=== PATIENT | male | born 1960 | race Caucasian/White ===

== ENCOUNTER 2018-10-13 03:55 | Emergency (ER) | payer BC, OTHER ==
[~2018-10-13] VITALS: Ht 177.8 cm; Wt 85.0 kg
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
[2018-10-13] MEDS ORDERED: CEPHALEXIN 500 MG CAPSULE ONE (04:58)
[2018-10-13] MEDS ORDERED: CEPHALEXIN 500 MG CAPSULE PO ONE (05:00)
[2018-10-13 05:01] LABS: BASOPHILS # (AUTO) 0.02 x10^3/uL (0-0.1); BASOPHILS % (AUTO) 0 % (0-1); EOSINOPHILS # (AUTO) 0.09 x10^3/uL (0-0.4); EOSINOPHILS % (AUTO) 1 % (1-7); LYMPHOCYTES # (AUTO) 2.12 x10^3/uL (1-3.4); LYMPHOCYTES % (AUTO) 31 % (22-44); MD NO; MEAN CORPUSCULAR HEMOGLOBIN 30.3 pg (27.5-34.5); MEAN CORPUSCULAR HGB CONC 33.5 g/dL (33.2-36.2); MEAN CORPUSCULAR VOLUME 90.5 fL (81-97); MEAN PLATELET VOLUME 8.4 fL (7.4-10.4); MONOCYTES # (AUTO) 0.64 x10^3/uL (0.2-0.8); MONOCYTES % (AUTO) 9 % (2-9); NEUTROPHILS # (AUTO) 3.98 x10^3/uL (1.8-6.8); NEUTROPHILS % (AUTO) 58 % (42-75); PLATELET COUNT 196 x10^3/uL (130-400); RED BLOOD COUNT 5.33 x10^6/uL (4.38-5.82); RED CELL DISTRIBUTION WIDTH 13.1 % (9.4-14.8)
[2018-10-13 05:13] LABS: ALBUMIN 4.2 g/dL (3.4-5.0); ANION GAP 5 mmol/L (5-15); CALCIUM 8.7 mg/dL (8.5-10.1); CHLORIDE 110 mmol/L (98-107)
[2018-10-13 05:16] LABS: ALANINE AMINOTRANSFERASE 36 U/L (12-78); ALKALINE PHOSPHATASE 59 U/L (45-117); BILIRUBIN,TOTAL 0.6 mg/dL (0.2-1.0); CREATININE 0.82 mg/dL (0.7-1.3); SALICYLATE LEVEL < 1.7 mg/dL (2.8-20.0)
--- NOTE | 2018-10-13 05:16 | NUR ---
PT MOVED FROM ROOM 15 TO ROOM 40. ASSUMING CARE OF PT AT THIS TIME.
[2018-10-13 05:17] LABS: ACETAMINOPHEN < 2 mcg/mL (10-30)
[2018-10-13 05:30] LABS: AMPHETAMINE SCREEN, URINE Negative (Negative); BARBITURATE SCREEN, URINE Negative (Negative); BENZODIAZEPINE SCREEN, URINE Negative (Negative); CANNABINOID SCREEN, URINE Negative (Negative); COCAINE SCREEN, URINE Negative (Negative); METHADONE SCREEN, URINE Negative (Negative); OPIATE SCREEN, URINE Negative (Negative)
--- NOTE | 2018-10-13 05:38 | NUR ---
PT RESTING IN [facility] AT THIS TIME; CALM. PT VSS AND UPDATED IN EMR.
--- NOTE | 2018-10-13 05:52 | NUR ---
PT GIVEN WATER AT THIS TIME.
--- NOTE | 2018-10-13 06:41 | NUR ---
Pt asleep in [facility]; ian. sitter outside of room at this time.
--- NOTE | 2018-10-13 07:06 | NUR ---
received report from Jaun. pt calmly resting on gurney, NAD with equal chest rise/fall, no needs at this time, pt remains in safe environment, sitter in view.
--- NOTE | 2018-10-13 08:06 | NUR ---
(VS charted under wrong user name). pt upright on gurney awake, calm & cooperative, responds approp to staff, NAD, comfort measures provided, breakfast tray given, pt remains in safe environment, sitter in view.
--- NOTE | 2018-10-13 09:01 | NUR ---
pt ambulated to steadily for BM, back to [facility] awake, calm & cooperative, wound to L hand redressed by tech, responds approp to staff, NAD, comfort measures provided, pt remains in safe environment, sitter in view.
[2018-10-13] MEDS ORDERED: ZIPRASIDONE 20 MG INJ IM ONE ×2 (09:29→09:30)
--- NOTE | 2018-10-13 09:37 | NUR ---
pt began yelling into myers making various, generalized comments ("You people take our valuables away and say it's bacause you're taking care of us. Yeah, right!") and calling out for "Jona". This RN attempted to de-esculate & redirect pt and pt yelled, "Well, you all need to stop talking about me & making assumptions! If you want to know something about me, then ask me! Don't talk about me to each other!" This RN asked pt to refrain from yelling and attempted to reassure pt that em was talking around or near him or even about him. Pt yelled, "Well get in here & close that door so I can keep shouting bacause I'm not going to stop!" This RN explained we are not able to do that and pt lunged at this RN. This RN quickly closed the door before pt could reach her. ERP notified of situation. Pt stated to ERP "This comes directly from the president, himself, and is a covert operation and you all are going to get me killed!". Security also called & placed pt in 2-pt restraints, med given per eMAR. pt continues to talk to himself exhibiting flight of ideas.
--- NOTE | 2018-10-13 10:03 | NUR ---
pt mostly resting on gurney, occas muttering to self, restraints remain properly in place, NAD with equal chest rise/fall, no needs at this time, pt remains in safe environment, sitter in view, will continue to monitor frequently.
--- NOTE | 2018-10-13 10:26 | NUR ---
Yousif barrioschilango in ED - 10/13/18 at 1029 by CHRISTOPHER pt mostly resting on gurney, occas muttering to self, restraints remain properly in place, NAD with equal chest rise/fall, no needs at this time, pt remains in safe environment, sitter in view, will continue to monitor frequently.
[2018-10-13] MEDS ORDERED: BACITRACIN ZINC OINT 500U/GM, 0.9 GM ONE (10:54)
--- NOTE | 2018-10-13 11:01 | NUR ---
pt upright on gurney awake, calmer & cooperative, apologetic for behavior, responds approp to staff, NAD, comfort measures provided, pt remains in 2-pt restraints & in safe environment, sitter in view, will continue to monitor frequently.
[2018-10-13] MEDS ORDERED: LAMO150T3 PO (11:21)
[2018-10-13] MEDS ORDERED: LISI5TAB7 PO (11:21)
[2018-10-13] MEDS ORDERED: ONDANSETRON ODT 4 MG PO PRN (12:00)
[2018-10-13] MEDS ORDERED: POLYETHYLENE GLYCOL 17 GM PACKET PO PRN (12:00)
--- NOTE | 2018-10-13 12:04 | NUR ---
pt upright on gurney with eyes closed, able to doze off, calm & cooperative, responds approp to staff, NAD, comfort measures provided, pt remains in 2-pt restraints & in safe environment, sitter in view, will continue to monitor frequently.
--- NOTE | 2018-10-13 12:05 | NUR ---
pt verbally understands criteria for restraint removal, security called to remove 1 restraint, ERP & primer charger aware for slow de-escalation per ERP.
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
[2018-10-13 12:50] LABS: FREE T4 (FREE THYROXINE) 1.24 ng/dL (0.76-1.46); THYROID STIMULATING HORMONE 1.35 mIU/L (0.358-3.740)
--- NOTE | 2018-10-13 13:05 | NUR ---
pt upright on gurney awake, calm & cooperative, responds approp to staff, NAD, comfort measures provided, lunch tray given, pt remains in 1-pt restraint & in safe environment, sitter in view, will continue to monitor frequently.
--- NOTE | 2018-10-13 13:58 | NUR ---
TASK RN: EQUAL CHEST RISE WITH GOOD CAP REFILL. Patient is resting comfortably in bed. Vital Signs within normal limits.
--- NOTE | 2018-10-13 13:58 | NUR ---
TASK RN DISCONTINUED RESTRAINT AT THIS TIME.
--- NOTE | 2018-10-13 15:01 | NUR ---
pt calmly resting on gurney, NAD with equal chest rise/fall, no needs at this time, pt remains in safe environment, sitter in view.
--- NOTE | 2018-10-13 16:00 | NUR ---
pt continues to calmly rest on gurney, NAD with equal chest rise/fall, no needs at this time, pt remains in safe environment, sitter in view.
--- NOTE | 2018-10-13 17:00 | NUR ---
pt upright on gurney awake, calm & cooperative, able to doze off, responds approp to staff, NAD, comfort measures provided, dinner tray given, pt remains in safe environment, sitter in view.
--- NOTE | 2018-10-13 17:16 | NUR ---
PACKET FAXED TO [facility]
--- NOTE | 2018-10-13 18:13 | NUR ---
pt continues to calmly rest on gurney, NAD with equal chest rise/fall, no needs at this time, pt remains in safe environment, sitter in view.
--- NOTE | 2018-10-13 19:01 | NUR ---
report given to Stephanie CRUMP
--- NOTE | 2018-10-13 20:07 | NUR ---
Received report from Cheryl CRUMP, assumed care of patient, nad, SI precautions observed, sitter in the hallway, will continue to monitor.
--- NOTE | 2018-10-13 20:49 | NUR ---
patient resting in [place], watching tv, provided with snacks and fluids, no other needs at this time, nad, sitter in the hallway, SI precautions observed, will continue to monitor.
[2018-10-13] MEDS: LAMOTRIGINE 100 MG TABLET PO SCH (21:11)
[2018-10-13] MEDS: LINEZOLID 600 MG TABLET PO SCH (21:11)
--- NOTE | 2018-10-13 22:05 | NUR ---
patient asked for his phone to get contact numbers, phone given for pt to get numbers, phone and two bags of belongings placed back and locked up in security cabinet, sitter assisted patient to use the hospital phone in the hallway, will continue to monitor pt.
--- NOTE | 2018-10-13 22:30 | NUR ---
patient resting in gurney, no other needs at this time, nad, sitter in hallway, SI precautions observed, will continue to monitor.
--- NOTE | 2018-10-13 23:54 | NUR ---
Patient sleeping in [facility], sitter in the hallway, SI precautions observed, will continue to monitor.
--- NOTE | 2018-10-14 00:47 | NUR ---
patient sleeping in gurney, respirations even and unlabored, nad, sitter in view, SI precautions observed, will continue to monitor.
--- NOTE | 2018-10-14 02:34 | NUR ---
patien asleep in gurney, respirations even and unlabored, NAD, sitter in view, SI precautions observed, will continue to monitor.
--- NOTE | 2018-10-14 03:51 | NUR ---
patien asleep in gurney, respirations even and unlabored, NAD, sitter in view, SI precautions observed, will continue to monitor.
--- NOTE | 2018-10-14 05:21 | NUR ---
patient sleeping comfortably in gurney, respirations even and unlabored, NADN sitter in view, SI precautions observed, will continue to monitor.
[2018-10-14 06:06] LABS: BASOPHILS # (AUTO) 0.02 x10^3/uL (0-0.1); BASOPHILS % (AUTO) 0 % (0-1); EOSINOPHILS % (AUTO) 1 % (1-7); LYMPHOCYTES # (AUTO) 2.74 x10^3/uL (1-3.4); LYMPHOCYTES % (AUTO) 39 % (22-44); MD NO; MEAN CORPUSCULAR HEMOGLOBIN 30.7 pg (27.5-34.5); MEAN CORPUSCULAR HGB CONC 34.1 g/dL (33.2-36.2); MEAN CORPUSCULAR VOLUME 90.1 fL (81-97); MEAN PLATELET VOLUME 8.8 fL (7.4-10.4); MONOCYTES # (AUTO) 0.67 x10^3/uL (0.2-0.8); MONOCYTES % (AUTO) 10 % (2-9); NEUTROPHILS # (AUTO) 3.55 x10^3/uL (1.8-6.8); NEUTROPHILS % (AUTO) 50 % (42-75); PLATELET COUNT 184 x10^3/uL (130-400); RED BLOOD COUNT 5.03 x10^6/uL (4.38-5.82); RED CELL DISTRIBUTION WIDTH 13.6 % (9.4-14.8)
[2018-10-14 06:07] LABS: ALBUMIN 3.5 g/dL (3.4-5.0); ANION GAP 5 mmol/L (5-15); CALCIUM 8.3 mg/dL (8.5-10.1); CHLORIDE 110 mmol/L (98-107)
[2018-10-14 06:10] LABS: ALANINE AMINOTRANSFERASE 35 U/L (12-78); ALKALINE PHOSPHATASE 54 U/L (45-117); BILIRUBIN,TOTAL 0.9 mg/dL (0.2-1.0); CREATININE 0.91 mg/dL (0.7-1.3); TOTAL PROTEIN 6.2 g/dL (6.4-8.2)
--- NOTE | 2018-10-14 06:23 | NUR ---
patient asleep in gurney, respirations even and unlabored, NADN sitter in view, SI precautions observed, will continue to monitor.
--- NOTE | 2018-10-14 07:01 | NUR ---
Report given to Caroline CRUMP and Jaycee CRUMP
--- NOTE | 2018-10-14 07:08 | NUR ---
BEDSIDE REPORT FROM BEATRIZ CRUMP, PT SLEEPING IN [facility], EQUAL CHEST RISE AND FALL, SITTER AT BEDSIDE.
--- NOTE | 2018-10-14 08:00 | NUR ---
PT SLEEPING IN GURNEY, EQUAL CHEST RISE AND FALL. SITTER AT BEDSIDE
[2018-10-14] MEDS ORDERED: SENNA/DOCUSATE TABLET PO SCH (09:00)
[2018-10-14] MEDS ORDERED: LISINOPRIL 20 MG TABLET PO SCH (09:00)
[2018-10-14] MEDS: LINEZOLID 600 MG TABLET PO SCH ×2 (09:03→22:26)
--- NOTE | 2018-10-14 09:15 | NUR ---
PT GIVEN BREAKFAST AND AM MEDS, PT CALM AND COOPERATIVE, REQUESTING READING MATERIAL, BOOK PROVIDED. SITTER AT BEDSIDE. PT STILL +SI AND PARANOIA. RECIEVED PHONE CALL FROM OFFICE RECEPTIONIST TODAY.
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
[2018-10-14] MEDS ORDERED: ZIPRASIDONE 20 MG INJ IM PRN (10:00)
--- NOTE | 2018-10-14 10:15 | NUR ---
PT SOMEWHAT ANXIOUS, NO PRN MEDICATION ON OCT. MD BAILEY AND CATHY PRN ORDERED. PT CALM AND COOPERATIVE AT THIS TIME
--- NOTE | 2018-10-14 11:07 | NUR ---
PT RESTING IN BED, CALM AND COOPTERATIVE AT THIS TIME. DENIES NEED FOR "ANXIETY" MEDICATION. SITTER AT BEDSIDE
--- NOTE | 2018-10-14 11:26 | NUR ---
CASE MANAGEMENT AND SW AT BEDSIDE
--- NOTE | 2018-10-14 12:15 | NUR ---
PT RESTING IN BED, PROVIDED LUNCH TRAY. CALM AND COOPERATIVE, NAD. PROVIDED ADDITIONAL FOOD ASKED. SITTER AT DOORWAY
--- NOTE | 2018-10-14 13:15 | NUR ---
PT SLEEPING IN BED, EQUAL CHEST RISE AND FALL, SITTER AT DOORWAY. NAD. WCTM
--- NOTE | 2018-10-14 14:08 | NUR ---
PT SLEEPING IN BED, EQUAL CHEST RISE AND FALL, SITTER AT DOORWAY. NAD. WCTM
--- NOTE | 2018-10-14 15:00 | NUR ---
PRECEPTOR RN: PT IN HOSPITAL BED IN SUICIDE SECURED ROOM, SITTER AT DOORWAY, NAD, NO NEEDS AT THIS TIME, WCTM.
--- NOTE | 2018-10-14 16:01 | NUR ---
PT TAKEN TO SHOWER BY CHAYA CRUMP, SITTER AT DOORWAY. KAPIL. PRIYA
[2018-10-14] MEDS ORDERED: BACITRACIN ZINC OINT 500U/GM, 0.9 GM ONE (16:34)
--- NOTE | 2018-10-14 17:05 | NUR ---
DRESSING CHANGED AND BACITRACIN TO HAND. PT WATCHING TV IN BED, SITTER AT DOORWAY. KAPIL. ROSALIE
--- NOTE | 2018-10-14 17:05 | NUR ---
UPDATED INSURANCE. PACKET FAXED TO [facility], [facility]
--- NOTE | 2018-10-14 17:43 | NUR ---
PT GIVEN DINNER TRAY, PT WATCHING TV IN BED, SITTER AT DOORWAY. NAD. WIGGINS
--- NOTE | 2018-10-14 18:46 | NUR ---
PT ACCEPTED TO [facility], REPORT GIVEN TO ISMAEL. PT SET TO LEAVE AT MIDNIGHT
--- NOTE | 2018-10-14 19:05 | NUR ---
REPORT FROM MCKENNA RN. PT SITTING IN BED, ALERT, AWAKE. NO STATED NEEDS AT THIS TIME. WILL CONTINUE TO MONITOR. SITTER AT DOOR FOR OBS. PT ON HOSPITAL BED.
--- NOTE | 2018-10-14 20:41 | NUR ---
PT RESITNG IN BED, VITALS DONE. PT REQUESTING WATER. SITTER AT DOOR. WILL CONTINUE TO MONITOR. PT TRAY CLEARED OF DEBRIS
--- NOTE | 2018-10-14 21:17 | NUR ---
PT RESTING IN BED. SITTER AT DOOR. WILL CONTINUE TO MONITOR.
--- NOTE | 2018-10-14 22:10 | NUR ---
PT SCHEDULED NIGHT MEDS REQUESTED. SITTER AT DOOR. WILL CONTINUE TO MONITOR. NO DISTRESS NOTED AT THIS TIME.
[2018-10-14] MEDS: LAMOTRIGINE 100 MG TABLET PO SCH (22:28)
[2018-10-14 22:50] VITALS: BP 137/77
--- NOTE | 2018-10-14 23:06 | NUR ---
PT FOUND SLEEPING AND IN NO APPARENT DISTRESS. MEDICATIONS ADMINISTERED. NURSE ASSESSED LEFT PALM AND CHANGED DRESSING. NO SIGNS OR SYMTOMS OF INFECTION PRESENT. SITTER AT DOOR. WILL CONTINUE TO MONITOR.
== END 2018-10-15 00:15 ==
LOC: ED 05:52 → EDIP 06:57 → UNDOADMOB 06:57 → ED 10-14 05:52
DX: L03.011 Cellulitis of right finger (principal); F33.9 Major depressive disorder, recurrent, unspecified; R45.851 Suicidal ideations; F10.232 Alcohol dependence with withdrawal with perceptual disturbance; I10 Essential (primary) hypertension; F39 Unspecified mood [affective] disorder; Z90.49 Acquired absence of other specified parts of digestive tract; Z91.19 Patient's noncompliance with other medical treatment and regimen; Y90.9 Presence of alcohol in blood, level not specified
CPT/HCPCS: 36415; 80053; 80307; 80329; 84439; 84443; 85025; 96372; 99285; J3486; G0480